=== PATIENT | male | born 1960 | race Caucasian/White ===

== ENCOUNTER → 2016-10-17 | Outpatient (CLI) | payer BC ==
--- NOTE | 2016-10-17 16:37 | CT ---
Unenhanced CT Scan of the Left Lower Extremity Clinical History: 56-year-old male with left knee osteoarthritis, anticipating a MAKOplasty on 2016. ICD-10 Diagnostic Code: M17.9. 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 Technique: A multidetector unenhanced helical CT scan was obtained from the supraacetabular aspect of the left hip caudally through the subtrochanteric portion of the left femur, and then from the mid-f emoral through mid-tibial diaphyses, and then finally at the level of the ankle. Images through the l eft hip and ankle were acquired at 2.50 mm increments and at the level of the left knee were obtained at 2.50 and 1.25 mm increments, and are reviewed in bone and soft tissue windows. Parasagittal and p aracoronal reconstructed images of the left knee are also provided. The DFOV is 25.0 cm. A dose reduc tion protocol was used. Findings: CT Scan of the Left Hip: The femoral head is well-seated within the acetabulum. There are some tiny b one islands associated with the cephalad portion of the femoral head. There is no hip joint effusion. Minimal acetabular periarticular degenerative spurring is noted. The symphysis pubis and the left is chial pubic rami are normal. The visualized soft tissues are unremarkable. There is a small enthesoph yte noted off of the anterior portion of the left greater trochanter. CT Scan of the Left Knee: There is severe medial femoral-tibial compartment narrowing with subchondra l sclerosis and marginal osteophytes. There is also a mild degree of lateral patellofemoral joint spa ce narrowing without patellar tilting, translation, or agnes subluxation. Small posterior patellar os teophytes, medial greater than lateral, as well as anterior femoral condylar degenerative spurring ar e seen. There is a small suprapatellar joint effusion. There is degenerative pinnacling of the tibial spines, and some minimal osseous hypertrophy along the distal femoral intercondylar notch. Tiny marissa pheral lateral femoral and tibial spurring is noted. The tibiofibular articulation is normal. CT Scan of the Left Ankle: Negative. Impression: Degenerative osteoarthritic features are most pronounced at the left medial femoral-tibia l compartment, with a small associated left knee suprapatellar joint effusion. Data were also available for transmission before the anticipated DINA knee replacement surgery.
== END ==
LOC: FIMAGING 14:51
PROVIDERS: ATTEND Orthopaedic Surgery
DX: Z01.818 Encounter for other preprocedural examination (principal); M17.12 Unilateral primary osteoarthritis, left knee; M25.462 Effusion, left knee

== ENCOUNTER 2016-10-22 05:50 | Observation (INO) | payer BC ==
[2016-10-22] MEDS ORDERED: LIDOCAINE 1% 5 ML SDV ONE (06:20)
[2016-10-22] MEDS ORDERED: SKIN ADHESIVE (DERMABOND) 1 EACH TP ONE (06:32)
[2016-10-22] MEDS ORDERED: TRANEXAMIC ACID 3,000 MG/50 ML BAG IRR ONE (06:32)
[2016-10-22] MEDS ORDERED: VANCOMYCIN 1 GM VIAL IV ONE (06:33)
[2016-10-22] MEDS ORDERED: LR 1,000 ML IV ONE (06:35)
[2016-10-22] MEDS ORDERED: LIDOCAINE 1% 5 ML SDV ID PRN (06:35)
[2016-10-22] MEDS ORDERED: MIDAZOLAM 2 MG/2 ML VIAL ONE (06:52)
[2016-10-22] MEDS ORDERED: PROPOFOL/EMULSION 500 MG/50 ML BOTTLE IV ONE ×2 (07:00→07:29)
[2016-10-22] MEDS ORDERED: TRANEXAMIC ACID 3,000 MG in NS 50 ML IRR ONE (07:00)
[2016-10-22] MEDS ORDERED: CHLORHEXIDINE GLUC HIBICLENS 118 ML BTL TP ONE (07:00)
[2016-10-22] MEDS ORDERED: [UNRECOGNIZED DRUG - REMARK] IV ONE (07:00)
[2016-10-22] MEDS ORDERED: ROPI/epiNEPH/KETOROLAC JOINT COCKTAIL IU ONE (07:00)
[2016-10-22] MEDS ORDERED: ACETAMINOPHEN 325 MG TAB PO ONE (07:00)
[2016-10-22] MEDS ORDERED: BUPIVACAINE/DEXTROSE 7.5MG SPINAL AMP SP ONE (07:00)
[2016-10-22] MEDS ORDERED: FAMOTIDINE 20 MG TAB PO ONE (07:00)
[2016-10-22] MEDS ORDERED: DEXAMETHASONE 4 MG/ML VIAL IVP ONE (07:00)
[2016-10-22] MEDS ORDERED: ROPIVACAINE HCL 150 MG/30 ML INJ ONE (07:41)
[2016-10-22] MEDS ORDERED: ONDANSETRON DISINTEGRATING 4 MG TAB PO PRN (08:25)
[2016-10-22] MEDS ORDERED: LACTULOSE 20 GM/30 ML UDCUP PO PRN (08:25)
[2016-10-22] MEDS ORDERED: PROMETHAZINE HCL 25 MG/ML VIAL IVP PRN (08:25)
[2016-10-22] MEDS ORDERED: diphenhydrAMINE 25 MG CAP PO PRN (08:25)
[2016-10-22] MEDS ORDERED: CYCLOBENZAPRINE 10 MG TAB PO PRN (08:25)
[2016-10-22] MEDS ORDERED: METOCLOPRAMIDE 10 MG/2 ML VIAL IVP PRN (08:25)
[2016-10-22] MEDS ORDERED: PROMETHAZINE HCL 25 MG SUPPR PR PRN (08:25)
[2016-10-22] MEDS ORDERED: TEMAZEPAM 15 MG CAP PO PRN (08:25)
[2016-10-22] MEDS ORDERED: MAGNESIUM HYDROXIDE 30 ML UDCUP PO PRN (08:25)
[2016-10-22] MEDS ORDERED: PHARMACY PAIN CONSULT 1 EA MISC PRN (08:25)
[2016-10-22] MEDS ORDERED: oxyCODONE IR 5 MG TAB PO PRN (08:25)
[2016-10-22] MEDS ORDERED: ONDANSETRON 4 MG/2 ML VIAL IVP PRN (08:25)
[2016-10-22] MEDS ORDERED: DIPHENOXYLATE/ATROPINE LOMOTIL 1 TAB PO PRN (08:25)
[2016-10-22] MEDS ORDERED: POLYETHYLENE GLYCOL 3350 17 GM PKT PO PRN (08:25)
[2016-10-22] MEDS ORDERED: BISACODYL 10 MG SUPP PR PRN (08:25)
--- NOTE | 2016-10-22 08:26 | POSTOPPROG ---
Post Op Note Date of Operation: 10/22/16 Surgeon: Cynthia [facility] Therapist: ramirez snowden Anesthesiologist: dr. waller Anesthesia: Spinal, Other (Specify) (adductor canal block) Pre-op Diagnosis: Left knee OA Post-op Diagnosis: same Indication: left knee pain due to OA that failed conservative measures Procedure: L partial knee arthroplasty, medial compartment, robot assisted Findings: severe medial knee OA Inf/Abcess present in the surg proc area at time of surgery?: No EBL: [id number]
[2016-10-22] MEDS ORDERED: LR 1,000 ML IV SCH (08:30)
[2016-10-22] MEDS ORDERED: amLODIPine BESYLATE 5 MG TAB PO SCH (09:00)
[2016-10-22] MEDS ORDERED: SENNOSIDES/DOCUSATE SODIUM TAB PO SCH (09:00)
--- NOTE | 2016-10-22 09:01 | DX ---
Portable Left Knee, AP and Lateral Views, at 8:48 AM Clinical History: 56-year-old male in the PACU after a left knee arthroplasty. COMPARISON STUDY: CT scan, dated October 17, 2016. FINDINGS: In the interim, the patient has undergone a medial femoral-tibial compartment hemiarthropla sty (MAKOplasty), with anatomic alignment. There is some degenerative pinnacling of the tibial spines . There is some prepatellar soft tissue swelling. There is some air and fluid in the suprapatellar bu rsa. There are "ghosting artifacts" from previously placed and subsequently removed orthopedic hardwa re in the femoral and tibial diaphyses. A pneumatic cuff is seen over the upper calf. IMPRESSION: Status post left knee arthroplasty, with anatomic alignment.
[2016-10-22 09:43] VITALS: RESP 16
[2016-10-22] MEDS ORDERED: ACETAMINOPHEN 325 MG TAB PO SCH (12:00)
[2016-10-22 13:08] VITALS: BP 116/63; PULSE 65; TEMP 98.4; O2SAT 93
[2016-10-22] MEDS ORDERED: ceFAZolin 3 GM in D5W 100 ML IV SCH (14:00)
[2016-10-22] MEDS ORDERED: WARFARIN SODIUM 5 MG TAB PO SCH (16:00)
--- NOTE | 2016-10-22 19:58 | GOP ---
[f rep st] OPERATIVE REPORT DATE OF OPERATION: 10/22/2016 SURGEON: Michael Kennedy MD BARREL FINISHER: Areli Kennedy PA-C ANESTHESIA: Spinal. PREOPERATIVE DIAGNOSIS: Left knee osteoarthritis. POSTOPERATIVE DIAGNOSIS: Left knee osteoarthritis. PROCEDURE PERFORMED: Left medial compartment partial knee replacement with computer navigation. FINDINGS: severe medial OA ESTIMATED BLOOD LOSS: 30 cc. INDICATIONS: This is a 56-year-old male with progressive pain of the left knee unresponsive to conservative care. Risks and benefits of surgical intervention were explained in detail. DESCRIPTION OF PROCEDURE: The patient was brought to the operating room and placed on the table in supine position. Spinal anesthesia was induced without difficulty. A pneumatic tourniquet was applied about the left proximal thigh and the leg was prepped and draped in sterile fashion. Attention was turned first to the distal aspect of the left femur. At 3 cm proximal to the lateral rise of the femur, 2 percutaneous half pins were placed for fixation of the femoral array. In a similar fashion, 2 pins were placed anterolateral on the tibia for fixation of the tibial array. External land marking and registration of the hip center was performed without difficulty. After exsanguination by elevation, the tourniquet was inflated to 275 mmHg. Incision was made from the tibial tuberosity to the superior pole of the patella. Dissection was carried out through the subcutaneous tissue to the deep fascia using Bovie electrocautery for hemostasis. Medial parapatellar arthrotomy was carried out to the superior pole of the patella. The medial collateral ligament was elevated and the infrapatellar fat pad was resected. Internal femoral and tibial registration was carried out without difficulty and the femoral and tibial checkpoints were placed and verified for accuracy. Attention was turned to the femur. The foot print for the size 6 femoral component was cut with the 6 mm bur using the Navmii robotic system and verified for accuracy against the CT based plan. The hole was cut for the femoral post. In a similar fashion, the 6 mm bur was used to cut the foot print for the size 7 tibial component using the Navmii system and verified for accuracy against the CT based plan. Attention was turned to the posterior aspect of the knee and remnants of the medial meniscus were excised. The posterior capsule was injected with ropivacaine, epinephrine and Toradol. Trial reduction was carried out and there was excellent range of motion, alignment and stability using the size 6 femoral component and the size 7 tibial component and 7 x 8 mm polyethylene. All trials were then removed. The joint was thoroughly irrigated and carefully dried. One package of cement and 1 gram of vancomycin were mixed in the vacuum mixer and placed on the fixation surfaces of all components. The components were implanted and all excess cement was thoroughly removed. Implant placement was verified against the CT view plan and found to be excellent. The tourniquet was deflated and all bleeders were coagulated. The wound was thoroughly irrigated and closed using interrupted sutures of 2-0 Vicryl for the joint capsule. The subcu was closed with 3-0 Vicryl and the skin with 4-0 Monocryl. Dermabond and Steri-Strips were applied, followed by a compressive dressing. The patient was then moved from the operating room to the recovery room in good condition, having tolerated the procedure well. CASE CLASSIFICATION: Clean. /[id number]/MODL MTDD
[2016-10-22] MEDS ORDERED: FAMOTIDINE 20 MG TAB PO SCH (21:00)
[2016-10-23] MEDS ORDERED: ENOXAPARIN 40 MG/0.4 ML SYR SC SCH (09:00)
--- NOTE | 2016-10-23 14:26 | GDS ---
[f rep st] DISCHARGE SUMMARY ADMISSION DIAGNOSIS: Left knee osteoarthritis. DISCHARGE DIAGNOSIS: Left knee osteoarthritis. PROCEDURE: Left partial knee arthroplasty, medial compartment, robotic assisted. VTE PROPHYLAXIS: Coumadin and Lovenox recommended. BRIEF DESCRIPTION OF HOSPITAL STAY: Patient was admitted for an elective joint arthroplasty. The pa tient tolerated the procedure well and has passed physical therapy. The patient was given appropriat e antibiotic prophylaxis and venous thromboembolism prophylaxis. The patient's pain was well control led on oral pain medication, patient was holding down food, and had urinated. Decision was made to d ischarge the patient. The patient was given post-operative prescriptions pre-operatively. PLAN: To follow up with Dr. Kennedy at [facility] in 2 to 3 weeks. /[id number]/MODL
== END 2016-10-22 16:12 | disposition home or self-care (01) ==
LOC: INTOOBSV 05:50 → F3N 05:50
PROVIDERS: ADMIT Orthopaedic Surgery; ATTEND Orthopaedic Surgery
PROC: 8E0Y0CZ Robotic Assisted Procedure of Lower Extremity, Open Approach (ICD-10-PCS; principal; 2016-10-22 07:15)
PROC: 0SRD0L9 Replacement of Left Knee Joint with Medial Unicondylar Synthetic Substitute, Cemented, Open Approach (ICD-10-PCS; principal; 2016-10-22 07:15)
DX: M17.12 Unilateral primary osteoarthritis, left knee (principal); I10 Essential (primary) hypertension; G47.33 Obstructive sleep apnea (adult) (pediatric); E66.01 Morbid (severe) obesity due to excess calories; Z68.38 Body mass index [BMI] 38.0-38.9, adult
CPT/HCPCS: 27486; 73560; 97161; G0378; C1713; J0171; J0690; J1100; J1885; J2250; J2704; J2795; J3370

== ENCOUNTER → 2018-04-29 | Outpatient (CLI) | payer BC | LOC: BRMIMAGING 11:56 | PROVIDERS: ATTEND Internal Medicine | DX: M25.541 Pain in joints of right hand (principal); M25.542 Pain in joints of left hand; M19.072 Primary osteoarthritis, left ankle and foot | CPT/HCPCS: 73130-PO; 73630-PO ==